=== PATIENT | female | born 1955 ===

== ENCOUNTER 2020-04-23 08:52 | Outpatient (CLI) | payer OTHER ==
[~2020-04-23 08:52] MED LIST: ASMANEX0.24 G1; NORVASC2.5 MG; SINGULAIR4 MG; ZOCOR5 MG
== END 2020-04-23 08:54 | disposition home or self-care (01) ==
LOC: SONOGRAMA 08:52
PROVIDERS: ATTEND Pathology Anatomic Pathology & Clinical Pathology
DX: E04.1 Nontoxic single thyroid nodule (principal)